=== PATIENT | male | born 1980 | race African-American/Black ===

== ENCOUNTER 2021-08-01 12:02 | Emergency (ER) | payer MEDICAID ==
[~2021-08-01] VITALS: Ht 188 cm; Wt 113.0 kg
[2021-08-01 12:12] VITALS: BP 133/83
[2021-08-01] MEDS ORDERED: BACITRACIN ZINC OINT UDPKT TOP SCH (14:45)
[2021-08-01] MEDS ORDERED: BO1 TP (14:53)
[2021-08-01] MEDS ORDERED: NAPR-681 PO (14:53)
[2021-08-01] MEDS ORDERED: DOXY100T28 PO (14:53)
== END 2021-08-01 15:30 | disposition home or self-care (01) ==
LOC: ER 12:02
DX: S61.212A Laceration without foreign body of right middle finger without damage to nail, initial encounter (principal); L92.8 Other granulomatous disorders of the skin and subcutaneous tissue; Z98.890 Other specified postprocedural states; W25.XXXA Contact with sharp glass, initial encounter; Y93.89 Activity, other specified; Y92.018 Other place in single-family (private) house as the place of occurrence of the external cause
CPT/HCPCS: 73130; 99283